=== PATIENT | female | born 1965 | race Caucasian/White ===

== ENCOUNTER 2016-08-14 20:56 | Emergency (ER) | payer BC, MEDICARE, OTHER ==
[~2016-08-14] VITALS: Ht 188 cm; Wt 83.5 kg
[2016-08-14 21:37] VITALS: Ht 188 cm; Wt 83.5 kg
--- NOTE | 2016-08-14 22:19 | ERA ---
ER Documentation Chief Complaint Date/Time DATE: 08/14/16 TIME: 22:18 Chief Complaint Abdominal pain and pelvic pain HPI The patient is a 51-year-old female, presenting to the ER because of diffuse abdominal pain and left-sided pelvic pain for the last 5 days, 01/18, associated with bloody urine or bloody stool. She was treated with IV antibiotic for UTI yesterday at the urgent care. She saw her general surgeon Dr. Cueva today who prescribed her Cipro and Flagyl, however the pain is not getting better, therefore she came to the ER. She complains of subjective fever, chills, painful urination, constipation. She smokes socially, denies drinking Past medical history: Depression Past surgical history: Back surgery, left knee arthroscopy, ventral herniorrhaphy ROS All systems reviewed and are negative except as per history of present illness. Medications Home Meds Active Scripts Hydrocodone/Acetaminophen ([place] 10-325 Tablet) 1 Each Tablet, 1 TAB PO Q6H Y for PAIN, #7 TAB Prov:CINDY LAWRENCE MD 08/15/16 Allergies Allergies: Coded Allergies: No Known Allergy (Unverified , 08/15/16) Physical Exam Vitals Vital Signs Date Time Temp Pulse Resp B/P Pulse Ox O2 Delivery O2 Flow Rate FiO2 08/14/16 21:37 97.9 76 18 160/88 99 Physical Exam Const: No acute distress. Head: Atraumatic. Eyes: Normal Conjunctiva. ENT: Normal External Ears, Nose and Mouth. Neck: Full range of motion. No meningismus. Resp: Clear to auscultation bilaterally. Cardio: Regular rate and rhythm, no murmurs. Abd: Soft, non distended, normal bowel sounds, diffuse abdominal tenderness, no rigidity, rebound, CVA tenderness. Mild left pelvic tenderness Skin: No petechiae or rashes. Back: No midline or flank tenderness. Ext: No cyanosis, or edema. Neur: Awake and alert. No focal deficit Psych: Normal Mood and Affect. Result Diagram: 08/14/16 2309 08/14/16 2309 Results 24 hrs Laboratory Tests Test 08/14/16 23:09 08/15/16 01:07 White Blood Count 7.210^3/ul Red Blood Count 3.5010^6/ul Hemoglobin 11.5g/dl Hematocrit 33.6% Mean Corpuscular Volume 96.0fl Mean Corpuscular Hemoglobin 32.9pg Mean Corpuscular Hemoglobin Concent 34.2g/dl Red Cell Distribution Width 13.2% Platelet Count 76488^3/UL Mean Platelet Volume 9.6fl Neutrophils % 48.2% Lymphocytes % 36.2% Monocytes % 10.5% Eosinophils % 4.0% Basophils % 1.0% Nucleated Red Blood Cells % 0.0/100WBC Neutrophils # 3.510^3/ul Lymphocytes # 2.610^3/ul Monocytes # 0.810^3/ul Eosinophils # 0.310^3/ul Basophils # 0.110^3/ul Nucleated Red Blood Cells # 0.010^3/ul Sodium Level 136mmol/L Potassium Level 4.4mmol/L Chloride Level 103mmol/L Carbon Dioxide Level 25mmol/L Anion Gap 12 Blood Urea Nitrogen 11mg/dl Creatinine 0.56mg/dl Glucose Level 101mg/dl Calcium Level 9.3mg/dl Total Bilirubin 0.0mg/dl Direct Bilirubin 0.00mg/dl Indirect Bilirubin 0.0mg/dl Aspartate Amino Transf (AST/SGOT) 20IU/L Alanine Aminotransferase (ALT/SGPT) 21IU/L Alkaline Phosphatase 94IU/L Total Protein 7.8g/dl Albumin 4.7g/dl Globulin 3.10g/dl Albumin/Globulin Ratio 1.51 Lipase 375U/L Bedside Urine pH (LAB) 5.0 Bedside Urine Protein (LAB) Negative Bedside Urine Glucose (UA) Negative Bedside Urine Ketones (LAB) Negative Bedside Urine Blood 1+ Bedside Urine Nitrite (LAB) Negative Bedside Urine Leukocyte Esterase (L Trace Current Medications Medications (Trade) Dose Ordered Sig/S[place] Route PRN Reason Start Time Stop Time Status Last Admin Dose Admin Morphine Sulfate (morphine) 4 mg ONCE STAT IV 08/14/16 22:37 08/14/16 22:39 DC 08/14/16 23:27 Ondansetron HCl (Zofran Inj) 4 mg ONCE STAT IV 08/14/16 22:37 08/14/16 22:39 DC 08/14/16 23:27 Morphine Sulfate (morphine) 4 mg ONCE ONCE IV 08/15/16 02:02 08/15/16 02:03 DC 08/15/16 02:09 Ondansetron HCl (Zofran Inj) 4 mg ONCE ONCE IV 08/15/16 02:02 08/15/16 02:03 DC 08/15/16 02:09 Procedures/MDM [place] [id number] Radiology Main Line: [phone] DIAGNOSTIC IMAGING REPORT Patient: JUSTINA GARCIA : 1965 Age: 51 Sex: F MR #: [id number] DOS: 08/14/162236 Ordering MD: CINDY LAWRENCE MD Location: [facility] Room/Bed: PROCEDURE: US Non-OB Pelvis. CLINICAL INDICATION: Left pelvic pain, history of hysterectomy. TECHNIQUE: Multiple sonographic images of the pelvis were obtained utilizing a transabdominal technique. The images were reviewed on a PACS workstation. COMPARISON: None. FINDINGS: The patient is status post hysterectomy. The ovaries are not visualized. No adnexal masses are noted. There is no evidence of free fluid. IMPRESSION: 1. Status post hysterectomy. 2. The ovaries are not visualized. RPTAT: HTAR .Yuri Hernandez MD, MD Date Time Electronically viewed and signed by .Yuri Hernandez MD, MD on 08/14/2016 23:30 .R/ CC: CINDY LAWRENCE MD [place] [id number] Radiology Main Line: [phone] DIAGNOSTIC IMAGING REPORT Patient: JUSTINA GARCIA : 1965 Age: 51 Sex: F MR #: [id number] DOS: 08/14/162236 Ordering MD: CINDY LAWRENCE MD Location: [facility] Room/Bed: PROCEDURE: CT abdomen and pelvis without contrast. CLINICAL INDICATION: Abdominal Pain TECHNIQUE: CT scan of the abdomen and pelvis without contrast was performed. The patient was scanned without intravenous contrast. 3-D coronal reformatted images were obtained from the axial source images. The calculated radiation dose measures 666 mGy centimeters. The CTDI measures 12 mGy COMPARISON: None available FINDINGS: CT abdomen: Limited images through the lung bases appear clear. The liver is normal in size and density. There is possible mild prominence of the intrahepatic bile ducts. The spleen and pancreas are unremarkable noncontrast appearance. The gallbladder appears within normal limits. There is dilation of the common bile duct, which measures up to 13 mm in diameter. The adrenal glands are symmetric and normal. The kidneys appear normal in size and contour. There is a probable 2 mm nonobstructing right lower pole renal collecting system stone, image 03-57. There is no ascites or retroperitoneal lymphadenopathy. Visualized bowel loops appear within normal limits. The appendix appears normal. CT pelvis: The urinary bladder appears normal. The pelvic organs are within normal limits , apparently status post hysterectomy. There is no abnormal pelvic mass or adenopathy. There is no pelvic free fluid. There is a lumbar dextroscoliosis, and postoperative changes. IMPRESSION: 1. Possible mild prominence of the intrahepatic bile ducts. Dilation of the common bile duct, up to 13 mm. Consider MRCP or ERCP for evaluation. 2. Probable 2 mm nonobstructing right lower pole renal collecting system stone. No hydronephrosis. 3. The appendix is seen and appears within normal limits. 4. Lumbar dextroscoliosis and degenerative change. RPTAT: HBST .Tommy Jaimes MD, Date Time Electronically viewed and signed by .Tommy Jaimes MD, MD on 08/14/2016 23:39 .T/ CC: CINDY LAWRENCE MD MEDICAL MAKING DECISION: The patient is a 51-year-old female, presenting with acute abdominal pain of unclear etiology and acute pelvic pain of unclear etiology. She was treated with morphine 4 mg IV 2 for pain, Zofran 4 mg IV 2 for nausea with good response. The differential diagnoses considered for acute abdominal pain include but are not limited to cholelithiasis, cholecystitis, cystitis, pancreatitis, hepatitis, gastritis, peptic ulcer disease, gastric ulcer, appendicitis, diverticulitis, cholangitis, choledocholithiasis, partial small bowel obstruction. The differential diagnoses considered for acute pelvic pain include but are not limited to PID, ovarian cyst, endometriosis, fibroids , appendicitis. Departure Diagnosis: Primary Impression: Abdominal pain Additional Impressions: Pelvic pain Anemia Condition: Good Comments She was discharged with norco advised to continue Cipro and Flagyl I discussed the findings with the patient. 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 The patient's blood pressure was elevated (>120/80) but appears stable without evidence of hypertension emergency or urgency. The patient was counseled about the risks of hypertension and urged to pursue outpatient monitoring and therapy within a week with their primary care physician. CINDY LAWRENCE MD Aug 14, 2016 22:19
[2016-08-14] MEDS ORDERED: ONDANSETRON 4 MG INJ IV STA (22:37)
[2016-08-14] MEDS ORDERED: morphine 4 MG/ML VIAL IV STA (22:37)
[2016-08-14 23:23] LABS: ADD SCAN DIFF NO
[2016-08-14 23:26] LABS: BASOPHIL # 0.1 10^3/ul (0.0-0.1); EOSINOPHILS # 0.3 10^3/ul (0.0-0.5); HEMATOCRIT 33.6 % (37.0-47.0); HEMOGLOBIN 11.5 g/dl (12.0-16.0); LYMPHOCYTES # 2.6 10^3/ul (0.8-2.9); LYMPHOCYTES % 36.2 % (15.0-51.0); MEAN CORPUSCULAR HEMOGLOBIN 32.9 pg (29.0-33.0); MEAN CORPUSCULAR HGB CONC 34.2 g/dl (32.0-37.0); MEAN PLATELET VOLUME 9.6 fl (7.4-10.4); MONOCYTE # 0.8 10^3/ul (0.3-0.9); MONOCYTES % 10.5 % (0.0-11.0); NEUTROPHIL # 3.5 10^3/ul (1.6-7.5); NEUTROPHILS % 48.2 % (39.0-77.0); PLATELET COUNT 316 10^3/UL (140-415); RED CELL DISTRIBUTION WIDTH 13.2 % (11.5-14.5); WHITE BLOOD COUNT 7.2 10^3/ul (4.8-10.8)
--- NOTE | 2016-08-14 23:30 | RADRPT ---
PROCEDURE: US Non-OB Pelvis. CLINICAL INDICATION: Left pelvic pain, history of hysterectomy. TECHNIQUE: Multiple sonographic images of the pelvis were obtained utilizing a transabdominal tech nique. The images were reviewed on a PACS workstation. COMPARISON: None. FINDINGS: The patient is status post hysterectomy. The ovaries are not visualized. No adnexal masses are not ed. There is no evidence of free fluid. IMPRESSION: 1. Status post hysterectomy. 2. The ovaries are not visualized. RPTAT: HTAR .Yuri Hernandez MD, Date Time Electronically viewed and signed by .Yuri Hernandez MD, on 08/14/2016 23:30 .R/
[2016-08-14 23:38] LABS: ALBUMIN 4.7 g/dl (3.3-4.9); ALBUMIN/GLOBULIN RATIO 1.51; CALCIUM 9.3 mg/dl (8.4-10.2); CREATININE 0.56 mg/dl (0.44-1.00); POTASSIUM 4.4 mmol/L (3.5-5.1); TOTAL PROTEIN 7.8 g/dl (6.1-8.1)
--- NOTE | 2016-08-14 23:39 | RADRPT ---
PROCEDURE: CT abdomen and pelvis without contrast. CLINICAL INDICATION: Abdominal Pain TECHNIQUE: CT scan of the abdomen and pelvis without contrast was performed. The patient was scan richard without intravenous contrast. 3-D coronal reformatted images were obtained from the axial [facility] e images. The calculated radiation dose measures 666 mGy centimeters. The CTDI measures 12 mGy COMPARISON: None available FINDINGS: CT abdomen: Limited images through the lung bases appear clear. The liver is normal in size and density. There is possible mild prominence of the intrahepatic elmer e ducts. The spleen and pancreas are unremarkable noncontrast appearance. The gallbladder appears w ithin normal limits. There is dilation of the common bile duct, which measures up to [address] The adrenal glands are symmetric and normal. The kidneys appear normal in size and contour. There is a probable 2 mm nonobstructing right lower p ole renal collecting system stone, image 03-57. There is no ascites or retroperitoneal lymphadenopathy. Visualized bowel loops appear within normal limits. The appendix appears normal. CT pelvis: The urinary bladder appears normal. The pelvic organs are within normal limits, apparently status p ost hysterectomy. There is no abnormal pelvic mass or adenopathy. There is no pelvic free fluid. There is a lumbar dextroscoliosis, and postoperative changes. IMPRESSION: 1. Possible mild prominence of the intrahepatic bile ducts. Dilation of the common bile duct, up t o 13 mm. Consider MRCP or ERCP for evaluation. 2. Probable 2 mm nonobstructing right lower pole renal collecting system stone. No hydronephrosis. 3. The appendix is seen and appears within normal limits. 4. Lumbar dextroscoliosis and degenerative change. RPTAT: HBST .Tommy Jaimes MD, MD Date Time Electronically viewed and signed by .Tommy Jaimes MD, MD on 08/14/2016 23:39 .T/
[2016-08-15 01:08] LABS: URINE BLOOD (Dip) POC 1+ (NEGATIVE)
[2016-08-15] MEDS ORDERED: ONDANSETRON 4 MG INJ IV ONE (02:02)
[2016-08-15] MEDS ORDERED: morphine 4 MG/ML VIAL IV ONE (02:02)
[2016-08-15] MEDS ORDERED: HYDR-902 PO (02:03)
[2016-08-15 02:22] VITALS: BP 136/79; PULSE 74; RESP 18; TEMP 97.9
== END 2016-08-15 02:22 | disposition home or self-care (01) ==
LOC: FTE 20:56
DX: R10.2 Pelvic and perineal pain (principal); D64.9 Anemia, unspecified; F17.210 Nicotine dependence, cigarettes, uncomplicated
CPT/HCPCS: 36415; 74176; 76856; 80053; 81003; 83690; 85025; 96374; 96375; 96376; 99285; J2270; J2405